=== PATIENT | male | born 1950 ===

== ENCOUNTER 2025-07-16 05:39 | Day surgery (SDC) | payer MEDICARE ==
[2025-07-14 11:17] VITALS: BMI 24.7
[2025-07-14 12:38] LABS: #Basophils 0.05 10x3/uL (0.0-0.2); #Eosinophils 0.12 10x3/uL (0.0-0.7); #Monocytes 0.62 10x3/uL (0.11-0.59); #Neutrophils 5.59 10x3/uL (1.40-6.50); %Basophils 0.6 % (0.0-1.0); %Eosinophils 1.4 % (0.0-10.0); %Lymphocytes 24.1 % (21.0-51.0); %Monocytes 7.3 % (0.0-10.0); %Neutrophils 66.1 % (42.0-75.0); Hematocrit 45.6 % (42.0-52.0); Hemoglobin 14.9 g/dL (14.0-18.0); Mean Corpuscular Hemoglobin 31.3 pg (27.0-31.0); Mean Corpuscular Volume 95.8 fL (78.0-98.0); Platelet Count 177 10x3/uL (130-400); Red Blood Cell (RBC) Count 4.76 mill/uL (4.70-6.10); White Blood Cell (WBC) Count 8.46 10x3/uL (4.8-10.8)
[2025-07-14 13:01] LABS: INR-International Normal Ratio 1.1; PTT 25.3 sec (22.9-36.1); Prothrombin Time 13.9 sec (12.0-14.7)
[2025-07-14 13:16] LABS: ALT (SGPT) 24 U/L (Less than 45); AST (SGOT) 27 U/L (11-34); Albumin 4.5 g/dL (3.1-4.5); Alkaline Phosphatase 60 U/L (40-110); Anion Gap 10 mmol/L (10-20); BUN (Urea Nitrogen) 17 mg/dL (8.4-25.7); Bilirubin, Total 0.7 mg/dL (0.3-1.2); Calc. Creatinine Clearance 0 mL/min (70-130); Calcium 10.5 mg/dL (7.8-10.44); Carbon Dioxide 27 mmol/L (23-31); Chloride 104 mmol/L (98-107); Globulin 3.5 g/dL (2.4-3.5); Glucose 107 mg/dL (83-110); Potassium 4.5 mmol/L (3.5-5.1); Sodium 136 mmol/L (136-145)
[2025-07-15 05:13] LABS: Myoglobin, Serum 108.0 ng/mL (28-72)
[2025-07-16] MEDS ORDERED: Rocuronium Bromide 10 MG/ML (10ML VIAL) ONE ×2 (07:06→07:19)
[2025-07-16] MEDS ORDERED: PHENYLEPHRINE-NS 100 MCG/ML 10 ML SYRINGE ONE (07:07)
[2025-07-16] MEDS ORDERED: Glycopyrrolate 0.2 MG/ML 5 ML SYRINGE ONE (07:08)
[2025-07-16] MEDS ORDERED: Lidocaine 1% (PF) 30 ML VIAL ONE (07:08)
[2025-07-16] MEDS ORDERED: Heparin 10,000 UNITS/ 10 ML VIAL ONE (07:09)
[2025-07-16] MEDS ORDERED: Isoproterenol 0.2 MG/1 ML AMP ONE (07:10)
[2025-07-16] MEDS ORDERED: HYDROmorphone 2 MG/ML VIAL ONE (07:19)
[2025-07-16] MEDS ORDERED: Ondansetron PF 4 MG/2 ML Vial ONE (07:19)
[2025-07-16] MEDS ORDERED: Etomidate 40 MG (20 mL) VIAL ONE (07:45)
[2025-07-16] MEDS ORDERED: SUCCINYLCHOLINE/SOD CL,ISO/PF 200 MG/10 ML SYRINGE FS ONE (08:08)
[2025-07-16] MEDS ORDERED: SUGAMMADEX SODIUM 200 MG/2 ML VIAL ONE ×2 (09:48→09:50)
[2025-07-16 11:14] LABS: Hemoglobin,Free - Plasma 7.6 mg/dL (0.0-4.9)
== END 2025-07-16 13:30 | disposition home or self-care (01) ==
LOC: SDC 05:39
PROVIDERS: ATTEND Internal Medicine Cardiovascular Disease
PROC: 4A023FZ Measurement of Cardiac Rhythm, Percutaneous Approach (ICD-10-PCS; principal; 2025-07-16)
PROC: 02583ZZ Destruction of Conduction Mechanism, Percutaneous Approach (ICD-10-PCS; 2025-07-16)
DX: I48.0 Paroxysmal atrial fibrillation (principal); Z98.890 Other specified postprocedural states; Z79.01 Long term (current) use of anticoagulants
CPT/HCPCS: 80053; 83010; 83051; 83874; 85025; 85347 ×2; 85610; 85730; 86850; 86900; 86901; 93005; 93623; 93656; 93657; C1730 ×2; C1733; C1759; C1760; C1766; C1769; C1893; C1894 ×2; J1100; J1171; J1644 ×2; J2003; J2405; J2720; J3010